=== PATIENT | male | born 1945 | race Caucasian/White ===

== ENCOUNTER → 2024-08-20 09:58 | Outpatient (REF) | payer OTHER, SELFPAY | LOC: HWRAD 09:58 | PROVIDERS: ATTENDING PHYSICIAN Family Medicine | DX: Z87.891 Personal history of nicotine dependence (principal) | CPT/HCPCS: 71250 ==

== ENCOUNTER 2024-09-01 08:52 | Outpatient (RCR) | payer OTHER, SELFPAY | END 2024-09-01 23:59 | disposition home or self-care (01) | LOC: RPT 08:52 | PROVIDERS: ATTENDING PHYSICIAN Physician Assistant Medical; FAMILY PHYSICIAN Family Medicine | DX: S93.491D Sprain of other ligament of right ankle, subsequent encounter (principal); M19.071 Primary osteoarthritis, right ankle and foot; Z73.6 Limitation of activities due to disability | CPT/HCPCS: 97110; 97112; 97162 ==

== ENCOUNTER → 2024-09-03 07:44 | Outpatient (REF) | payer OTHER, SELFPAY | LOC: HWRAD 07:44 | PROVIDERS: ATTENDING PHYSICIAN Family Medicine | DX: E04.1 Nontoxic single thyroid nodule (principal) | CPT/HCPCS: 76536 ==

== ENCOUNTER 2024-10-06 08:58 | Outpatient (RCR) | payer OTHER, SELFPAY | END 2024-10-06 13:43 | disposition home or self-care (01) | LOC: RPT 08:58 | PROVIDERS: ATTENDING PHYSICIAN Physician Assistant Medical; FAMILY PHYSICIAN Family Medicine | DX: S93.491D Sprain of other ligament of right ankle, subsequent encounter (principal); M19.071 Primary osteoarthritis, right ankle and foot; Z73.6 Limitation of activities due to disability; R26.2 Difficulty in walking, not elsewhere classified; M62.81 Muscle weakness (generalized); X50.1XXD Overexertion from prolonged static or awkward postures, subsequent encounter | CPT/HCPCS: 97110; 97112 ==

== ENCOUNTER → 2025-01-25 13:24 | Outpatient (REF) | payer OTHER, SELFPAY | LOC: HWRAD 13:24 | PROVIDERS: ATTENDING PHYSICIAN Family Medicine | DX: R42 Dizziness and giddiness (principal) | CPT/HCPCS: 93880 ==

== ENCOUNTER 2025-04-27 06:59 | Outpatient (RCR) | payer OTHER, SELFPAY | END 2025-04-27 23:59 | disposition home or self-care (01) | LOC: RPT 06:59 | PROVIDERS: ATTENDING PHYSICIAN Physician Assistant Medical; FAMILY PHYSICIAN Family Medicine | DX: M75.41 Impingement syndrome of right shoulder (principal); M79.9 Soft tissue disorder, unspecified; Z73.6 Limitation of activities due to disability; M19.011 Primary osteoarthritis, right shoulder | CPT/HCPCS: 97110; 97162 ==

== ENCOUNTER 2025-05-25 07:27 | Outpatient (RCR) | payer OTHER, SELFPAY | END 2025-05-25 10:35 | disposition home or self-care (01) | LOC: RPT 07:27 | PROVIDERS: ATTENDING PHYSICIAN Physician Assistant Medical; FAMILY PHYSICIAN Family Medicine | DX: M75.41 Impingement syndrome of right shoulder (principal); M79.9 Soft tissue disorder, unspecified; Z73.6 Limitation of activities due to disability; M19.011 Primary osteoarthritis, right shoulder | CPT/HCPCS: 97110 ==